=== PATIENT | male | born 1970 | race Caucasian/White ===

== ENCOUNTER 2016-09-06 16:51 | Inpatient (IN) | payer MEDICAID, OTHER ==
[~2016-09-06] VITALS: Ht 162.6 cm; Wt 66.2 kg
[~2016-09-06 16:51] MED LIST: IOHEXOL-350 100 ML BOTTLE ONE; SODIUM CHLORIDE 0.9% 10ML VIAL ONE
[2016-09-06] MEDS ORDERED: SODIUM CHLORIDE 0.9% 1,000 ML IV ONE (18:06)
[2016-09-06 18:35] LABS: BASOPHILS % 0.5 % (0.0-2.0); DIFFERENTIAL COMMENT 0; EOSINOPHILS % 5.3 % (0.0-5.0); HEMATOCRIT. 31.5 % (42.0-52.0); HEMOGLOBIN. 9.9 g/dL (14.0-18.0); LYMPHOCYTES % 9.3 % (20.0-50.0); MEAN CORPUSCULAR HEMOGLOBIN 23.2 pg (28.0-32.0); MEAN CORPUSCULAR HGB CONC 31.3 g/dL (31.0-37.0); MEAN CORPUSCULAR VOLUME 74.1 fL (80.0-94.0); MEAN PLATELET VOLUME 6.3 fl (7.4-10.4); MONOCYTES % 8.7 % (2.0-8.0); NEUTROPHILS % 76.2 % (40.0-76.0); PLATELET 634 x1000/uL (130-400); RED BLOOD CELL COUNT 4.26 mill/uL (4.7-6.1); RED CELL DISTRIBUTION WIDTH 18.4 % (11.6-14.6); WHITE BLOOD COUNT 4.9 x1000/uL (4.5-11.0)
[2016-09-06 18:43] LABS: INR 1.1
[2016-09-06 18:50] LABS: ALANINE AMINOTRANSFERASE 9 IU/L (13-61); ALBUMIN 3.1 g/dL (3.4-5.0); ANION GAP 16; CARBON DIOXIDE 25 mEq/L (21-32); CHLORIDE 97 mEq/L (98-107); INDEX HEMOLYSI 1 (1-3); INDEX ICTERIC 1 (1-4); INDEX LIPEMIC 1 (1-3); LIPASE 141 IU/L (73-393); UREA NITROGEN BLOOD 9 mg/dL (7-21); eGFR > 60 mL/min (>60)
[2016-09-06] MEDS ORDERED: DEXTROSE 50% WATER 50ML SYRINGE IV ONE (19:15)
[2016-09-06] MEDS ORDERED: ONDANSETRON HCL 4MG/2ML VIAL IV ONE (21:00)
[2016-09-06] MEDS ORDERED: MAGNESIUM/ALUMINUM HYDROXIDE/SIMETHICONE 30ML UDC PO PRN (21:00)
[2016-09-06] MEDS ORDERED: MORPHINE SULFATE 4 MG/ML CPJ (NOT FOR IM USE) IV ONE (21:00)
[2016-09-06] MEDS ORDERED: CLONIDINE 0.1MG TABLET PO PRN (21:00)
[2016-09-06] MEDS ORDERED: ACETAMINOPHEN 325MG TABLET PO PRN (21:00)
[2016-09-06] MEDS ORDERED: HYDROCODONE/ACETAMINOPHEN 5/325MG TABLET PO PRN (21:00)
[2016-09-06] MEDS ORDERED: IPRATROPIUM/ALBUTEROL 0.5-3(2.5)MG/3ML NEB INH PRN (21:00)
[2016-09-06 21:46] LABS: ANION GAP 17; CALCIUM 8.3 mg/dL (8.5-10.1); CARBON DIOXIDE 23 mEq/L (21-32); CHLORIDE 99 mEq/L (98-107); INDEX HEMOLYSI 1 (1-3); INDEX ICTERIC 1 (1-4); INDEX LIPEMIC 1 (1-3); UREA NITROGEN BLOOD 8 mg/dL (7-21); eGFR > 60 mL/min (>60)
[2016-09-06 22:15] LABS: CREATINE KINASE 20 IU/L (39-308); CREATINE KINASE MB FRACTION < 0.5 ng/mL (0.5-3.6); INDEX HEMOLYSI 1 (1-3); TROPONIN I < 0.02 ng/mL (0.00-0.04)
[2016-09-07] MEDS: SODIUM CHLORIDE 0.9% 1,000 ML IV SCH ×3 (01:52→21:32)
[2016-09-07] MEDS: ONDANSETRON HCL 4MG/2ML VIAL IV PRN ×3 (02:02→14:31)
[2016-09-07] MEDS: MORPHINE SULFATE 2 MG/ML CPJ (NOT FOR IM USE) IV PRN ×2 (02:02→08:18)
[2016-09-07 02:29] VITALS: BP 111/69
[2016-09-07 04:00] VITALS: BP 101/69
[2016-09-07 06:37] LABS: BASOPHILS % 0.6 % (0.0-2.0); DIFFERENTIAL COMMENT 0; EOSINOPHILS % 6.8 % (0.0-5.0); HEMATOCRIT. 30.2 % (42.0-52.0); HEMOGLOBIN. 9.7 g/dL (14.0-18.0); LYMPHOCYTES % 10.8 % (20.0-50.0); MEAN CORPUSCULAR HEMOGLOBIN 23.6 pg (28.0-32.0); MEAN CORPUSCULAR HGB CONC 32.1 g/dL (31.0-37.0); MEAN CORPUSCULAR VOLUME 73.5 fL (80.0-94.0); MEAN PLATELET VOLUME 6.6 fl (7.4-10.4); NEUTROPHILS % 71.8 % (40.0-76.0); PLATELET 617 x1000/uL (130-400); RED BLOOD CELL COUNT 4.12 mill/uL (4.7-6.1); RED CELL DISTRIBUTION WIDTH 17.8 % (11.6-14.6); WHITE BLOOD COUNT 4.9 x1000/uL (4.5-11.0)
[2016-09-07 06:45] LABS: CREATINE KINASE 19 IU/L (39-308); CREATINE KINASE MB FRACTION < 0.5 ng/mL (0.5-3.6); HDL CHOLESTEROL 23 mg/dL (40-59); INDEX HEMOLYSI 1 (1-3); INDEX ICTERIC 1 (1-4); INDEX LIPEMIC 1 (1-3); LDL CHOLESTEROL 130 mg/dL (5-100); TRIGLYCERIDE 156 mg/dL (0-150); TROPONIN I < 0.02 ng/mL (0.00-0.04)
[2016-09-07 08:00] VITALS: BP 113/68
[2016-09-07] MEDS ORDERED: MORPHINE SULFATE 2 MG/ML CPJ (NOT FOR IM USE) IV PRN (11:30)
[2016-09-07 12:00] VITALS: BP 112/71
[2016-09-07 12:57] LABS: CLARITY URINE TURBID (CLEAR); COLOR URINE YELLOW (YELLOW); GLUCOSE URINE NEGATIVE (NEGATIVE); KETONES URINE 4+ (NEGATIVE); LEUKOCYTE ESTERASE URINE 2+ (NEGATIVE); NITRITE URINE NEGATIVE (NEGATIVE); OCCULT BLOOD URINE 2+ (NEGATIVE); PH URINE 5.5 (4.5-8.0); PROTEIN URINE 1+ (NEGATIVE); SPECIFIC GRAVITY URINE 1.038 (1.005-1.030); UROBILINOGEN URINE 0.2 E.U./dL (0.2-1.0)
[2016-09-07 13:17] LABS: SQUAMOUS EPITHELIAL CELL URINE NONE SEEN /lpf (RARE/1+)
[2016-09-07 13:18] LABS: BACTERIA URINE 2+
[2016-09-07 13:19] LABS: RBC URINE 0-2 /hpf (0-2); WBC URINE 15-25 /hpf (0-2); YEAST URINE 3+
[2016-09-07 16:00] VITALS: BP 111/72
[2016-09-07] MEDS: METOCLOPRAMIDE HCL 10MG/2ML VIAL IV SCH ×2 (17:03→21:28)
[2016-09-07] MEDS: HYDROMORPHONE HCL/PF 2MG/ML CPJ IV PRN ×2 (17:04→21:31)
[2016-09-07] MEDS: CEFTRIAXONE 1 G PREMIX 50 ML IV SCH (17:05)
[2016-09-07 20:00] VITALS: BP 104/67
[2016-09-07] MEDS: ATORVASTATIN CALCIUM 10MG TABLET PO SCH (21:28)
[2016-09-07 21:29] LABS: THYROID STIMULATING HORMONE 1.4 uIU/mL (0.36-3.74)
[2016-09-07 22:48] LABS: FOLIC ACID (FOLATE) SERUM 9.8 ng/mL (>5.38)
[2016-09-08] VITALS: BP 108/74
[2016-09-08 04:00] VITALS: BP 111/76
[2016-09-08] MEDS: HYDROMORPHONE HCL/PF 2MG/ML CPJ IV PRN ×4 (04:07→20:22)
[2016-09-08] MEDS: ONDANSETRON HCL 4MG/2ML VIAL IV PRN (04:13)
[2016-09-08 06:35] LABS: HEMATOCRIT. 27.7 % (42.0-52.0); HEMOGLOBIN. 9.1 g/dL (14.0-18.0); MEAN CORPUSCULAR HEMOGLOBIN 24.1 pg (28.0-32.0); MEAN CORPUSCULAR VOLUME 73.1 fL (80.0-94.0); MEAN PLATELET VOLUME 6.7 fl (7.4-10.4); PLATELET 538 x1000/uL (130-400); RED BLOOD CELL COUNT 3.79 mill/uL (4.7-6.1)
[2016-09-08] MEDS: METOCLOPRAMIDE HCL 10MG/2ML VIAL IV SCH ×4 (06:36→21:28)
[2016-09-08 06:37] LABS: DIFFERENTIAL COMMENT 1
[2016-09-08 07:23] LABS: CHLORIDE 101 mEq/L (98-107); INDEX HEMOLYSI 1 (1-3); INDEX ICTERIC 1 (1-4); INDEX LIPEMIC 1 (1-3)
[2016-09-08 07:32] LABS: ANION GAP 13; CARBON DIOXIDE 26 mEq/L (21-32); eGFR > 60 mL/min (>60)
[2016-09-08 08:00] VITALS: BP 108/76
[2016-09-08 08:04] LABS: UREA NITROGEN BLOOD 4 mg/dL (7-21)
[2016-09-08 08:36] LABS: ANISOCYTOSIS 1+; PLATELET ESTIMATE INCREASED
[2016-09-08] MEDS: SODIUM CHLORIDE 0.9% 1,000 ML IV SCH ×2 (08:52→17:24)
[2016-09-08] MEDS ORDERED: POTASSIUM CHLORIDE 20MEQ TABLET SR PO NR (10:47)
[2016-09-08 12:00] VITALS: BP 104/75
[2016-09-08] MEDS: CEFTRIAXONE 1 G PREMIX 50 ML IV SCH (15:55)
[2016-09-08 16:00] VITALS: BP 118/84
[2016-09-08 20:00] VITALS: BP 122/90
[2016-09-08] MEDS: ATORVASTATIN CALCIUM 10MG TABLET PO SCH (21:28)
[2016-09-08] MEDS: FLUCONAZOLE 400MG/200ML BAG 200 ML IV SCH (22:19)
[2016-09-09] VITALS: BP 111/75
[2016-09-09] MEDS: SODIUM CHLORIDE 0.9% 1,000 ML IV SCH ×3 (03:04→21:59)
[2016-09-09 04:00] VITALS: BP_SYST 103; BP_SYST 134; BP_DIAS 74; BP_DIAS 94
[2016-09-09] MEDS: HYDROMORPHONE HCL/PF 2MG/ML CPJ IV PRN ×6 (05:28→21:57)
[2016-09-09] MEDS: METOCLOPRAMIDE HCL 10MG/2ML VIAL IV SCH ×4 (06:20→21:13)
[2016-09-09 06:58] LABS: BASOPHILS % 0.4 % (0.0-2.0); DIFFERENTIAL COMMENT 0; EOSINOPHILS % 4.2 % (0.0-5.0); HEMATOCRIT. 32.4 % (42.0-52.0); HEMOGLOBIN. 10.4 g/dL (14.0-18.0); LYMPHOCYTES % 9.3 % (20.0-50.0); MEAN CORPUSCULAR HEMOGLOBIN 23.5 pg (28.0-32.0); MEAN CORPUSCULAR HGB CONC 32.1 g/dL (31.0-37.0); MEAN CORPUSCULAR VOLUME 73.2 fL (80.0-94.0); MONOCYTES % 10.8 % (2.0-8.0); NEUTROPHILS % 75.3 % (40.0-76.0); PLATELET 595 x1000/uL (130-400); RED BLOOD CELL COUNT 4.43 mill/uL (4.7-6.1); RED CELL DISTRIBUTION WIDTH 17.8 % (11.6-14.6); WHITE BLOOD COUNT 7.7 x1000/uL (4.5-11.0)
[2016-09-09 07:25] LABS: ANION GAP 13; CALCIUM 8.7 mg/dL (8.5-10.1); CARBON DIOXIDE 29 mEq/L (21-32); CHLORIDE 102 mEq/L (98-107); INDEX HEMOLYSI 1 (1-3); INDEX ICTERIC 1 (1-4); INDEX LIPEMIC 1 (1-3); eGFR > 60 mL/min (>60)
[2016-09-09 07:41] LABS: UREA NITROGEN BLOOD 2 mg/dL (7-21)
[2016-09-09 08:00] VITALS: BP 106/74
[2016-09-09 12:00] VITALS: BP 107/85
[2016-09-09 16:00] VITALS: BP 118/81
[2016-09-09 20:00] VITALS: BP 114/83
[2016-09-09] MEDS: ATORVASTATIN CALCIUM 10MG TABLET PO SCH (21:13)
[2016-09-09] MEDS: FLUCONAZOLE 400MG/200ML BAG 200 ML IV SCH (21:13)
[2016-09-10] VITALS (7 sets, daily range): BP systolic 100–126; BP diastolic 61–93
[2016-09-10] MEDS: HYDROMORPHONE HCL/PF 2MG/ML CPJ IV PRN ×5 (04:13→22:06)
[2016-09-10 05:44] LABS: HEMATOCRIT. 29.6 % (42.0-52.0); HEMOGLOBIN. 9.3 g/dL (14.0-18.0); MEAN CORPUSCULAR HGB CONC 31.3 g/dL (31.0-37.0); MEAN CORPUSCULAR VOLUME 73.3 fL (80.0-94.0); MEAN PLATELET VOLUME 6.6 fl (7.4-10.4); PLATELET 477 x1000/uL (130-400); RED BLOOD CELL COUNT 4.04 mill/uL (4.7-6.1); RED CELL DISTRIBUTION WIDTH 17.9 % (11.6-14.6); WHITE BLOOD COUNT 6.5 x1000/uL (4.5-11.0)
[2016-09-10] MEDS: METOCLOPRAMIDE HCL 10MG/2ML VIAL IV SCH ×4 (06:07→22:06)
[2016-09-10 06:14] LABS: DIFFERENTIAL COMMENT 1
[2016-09-10 06:37] LABS: ANION GAP 14; CARBON DIOXIDE 28 mEq/L (21-32); CHLORIDE 103 mEq/L (98-107); INDEX HEMOLYSI 1 (1-3); INDEX ICTERIC 1 (1-4); INDEX LIPEMIC 1 (1-3); eGFR > 60 mL/min (>60)
[2016-09-10 06:43] LABS: UREA NITROGEN BLOOD 3 mg/dL (7-21)
[2016-09-10] MEDS: SODIUM CHLORIDE 0.9% 1,000 ML IV SCH ×2 (08:24→17:59)
[2016-09-10] MEDS ORDERED: CEFAZOLIN 1000MG PREMIX 50 ML IV SCH (09:40)
[2016-09-10 11:08] LABS: ANISOCYTOSIS 1+; HYPOCHROMASIA 1+
[2016-09-10 11:09] LABS: PLATELET ESTIMATE INCREASED
[2016-09-10] MEDS ORDERED: IOHEXOL-300 50 ML BOTTLE IV ONE (14:35)
[2016-09-10] MEDS ORDERED: IOHEXOL-300 100 ML BOTTLE ONE (14:35)
[2016-09-10] MEDS ORDERED: SODIUM CHLORIDE 0.9% 10ML VIAL ONE (14:35)
[2016-09-10 15:21] LABS: HEMATOCRIT. 29.1 % (42.0-52.0); HEMOGLOBIN. 9.3 g/dL (14.0-18.0); MEAN CORPUSCULAR HEMOGLOBIN 23.6 pg (28.0-32.0); MEAN CORPUSCULAR VOLUME 73.7 fL (80.0-94.0); MEAN PLATELET VOLUME 6.7 fl (7.4-10.4); PLATELET 424 x1000/uL (130-400); RED BLOOD CELL COUNT 3.95 mill/uL (4.7-6.1); RED CELL DISTRIBUTION WIDTH 18.1 % (11.6-14.6); WHITE BLOOD COUNT 7.1 x1000/uL (4.5-11.0)
[2016-09-10 15:25] LABS: DIFFERENTIAL COMMENT 1
[2016-09-10 15:41] LABS: ALANINE AMINOTRANSFERASE < 6 IU/L (13-61); ALBUMIN 2.5 g/dL (3.4-5.0); ANION GAP 12; CALCIUM 8.3 mg/dL (8.5-10.1); CARBON DIOXIDE 26 mEq/L (21-32); CHLORIDE 102 mEq/L (98-107); INDEX HEMOLYSI 1 (1-3); INDEX ICTERIC 1 (1-4); INDEX LIPEMIC 1 (1-3); MAGNESIUM 1.8 mg/dL (1.8-2.4); PHOSPHORUS 2.9 mg/dL (2.5-4.9); TRIGLYCERIDE 130 mg/dL (0-150); eGFR > 60 mL/min (>60)
[2016-09-10 15:45] LABS: HYPOCHROMASIA 1+; PLATELET ESTIMATE INCREASED
[2016-09-10 15:46] LABS: ANISOCYTOSIS 1+
[2016-09-10 15:49] LABS: UREA NITROGEN BLOOD 3 mg/dL (7-21)
[2016-09-10] MEDS ORDERED: KCL 10MEQ/50ML PREMIX 50 ML IV NR (17:00)
[2016-09-10] MEDS: BLOOD SUGAR DIAGNOSTIC STRIP TEST SCH (18:00)
[2016-09-10] MEDS: ATORVASTATIN CALCIUM 10MG TABLET PO SCH ×2 (21:00→22:06)
[2016-09-10] MEDS ORDERED: FAT EMULSIONS 500 ML IV SCH (21:00)
[2016-09-10] MEDS: FLUCONAZOLE 400MG/200ML BAG 200 ML IV SCH (22:07)
[2016-09-10] MEDS: TOTAL PARENTERAL NUTRITION 1,000 ML IV SCH (22:11)
[2016-09-11 01:21] VITALS: BP 96/69
[2016-09-11] MEDS: HYDROMORPHONE HCL/PF 2MG/ML CPJ IV PRN ×6 (02:06→16:54)
[2016-09-11 04:44] VITALS: BP 113/84
[2016-09-11] MEDS: BLOOD SUGAR DIAGNOSTIC STRIP TEST SCH ×3 (05:30→12:45)
[2016-09-11] MEDS: METOCLOPRAMIDE HCL 10MG/2ML VIAL IV SCH ×3 (06:41→16:54)
[2016-09-11] MEDS: TOTAL PARENTERAL NUTRITION 1,000 ML IV SCH ×2 (07:00→17:07)
[2016-09-11 08:09] VITALS: BP 111/84
[2016-09-11 12:00] VITALS: BP 117/87
[2016-09-11 19:29] VITALS: BP 111/80
[2016-09-11 19:45] VITALS: BP 111/80
[2016-09-12 13:07] LABS: HGB SOLUBILITY Negative (Negative)
== END 2016-09-11 20:35 | disposition home health service (06) | DRG 240 ==
LOC: ER 17:57 → 6WST 21:00
PROVIDERS: ADMIT Internal Medicine; ATTEND Internal Medicine
PROC: 06H03DZ Insertion of Intraluminal Device into Inferior Vena Cava, Percutaneous Approach (ICD-10-PCS; principal; 2016-09-10)
PROC: 02HV33Z Insertion of Infusion Device into Superior Vena Cava, Percutaneous Approach (ICD-10-PCS; 2016-09-10)
PROC: B5181ZA Fluoroscopy of Superior Vena Cava using Low Osmolar Contrast, Guidance (ICD-10-PCS; 2016-09-10)
PROC: B548ZZA Ultrasonography of Superior Vena Cava, Guidance (ICD-10-PCS; 2016-09-10)
DX: C18.9 Malignant neoplasm of colon, unspecified (principal); I26.99 Other pulmonary embolism without acute cor pulmonale; K74.60 Unspecified cirrhosis of liver; K56.7 Ileus, unspecified; R18.8 Other ascites; N30.90 Cystitis, unspecified without hematuria; B37.49 Other urogenital candidiasis; D50.9 Iron deficiency anemia, unspecified; G89.29 Other chronic pain; D75.89 Other specified diseases of blood and blood-forming organs; K92.1 Melena; R91.1 Solitary pulmonary nodule; Z93.3 Colostomy status; Z93.6 Other artificial openings of urinary tract status; Z85.048 Personal history of other malignant neoplasm of rectum, rectosigmoid junction, and anus
CPT/HCPCS: 36415; 36569; 37191; 71275; 74177; 76705; 76937; 77001; 80048; 80053; 80061; 81001; 82270; 82550; 82553; 82607; 82728; 82746; 82962; 83010; 83021; 83540; 83550; 83605; 83615; 83690; 83735; 84100; 84443; 84478; 84484; 85025; 85044; 85610; 85651; 85660; 87040; 87045; 87086; 87186; 87449; 87493; 93306; 93970; 93971; 96361; 96374; 96375; 99285; A4216; C1725; C1769; C1880; J0690; J0696; J1170; J1450; J2270; J2405; J2765; J3480; J7030; J7050; J7620; Q9967

== ENCOUNTER 2016-09-22 01:17 | Emergency (ER) | payer OTHER ==
[~2016-09-22] VITALS: Ht 162.6 cm; Wt 55.0 kg
[2016-09-22] MEDS ORDERED: SODIUM CHLORIDE 0.9% 1,000 ML IV ONE (02:20)
[2016-09-22] MEDS ORDERED: ONDANSETRON HCL 4MG/2ML VIAL IV STA (02:20)
[2016-09-22] MEDS ORDERED: DIPHENHYDRAMINE 50MG/ML VIAL IV ONE (02:30)
[2016-09-22] MEDS ORDERED: HYDROMORPHONE HCL/PF 2MG/ML CPJ IV ONE ×2 (02:30→06:00)
[2016-09-22 03:43] LABS: CLARITY URINE CLOUDY (CLEAR); COLOR URINE DARK YELLOW (YELLOW); GLUCOSE URINE 3+ (NEGATIVE); KETONES URINE NEGATIVE (NEGATIVE); LEUKOCYTE ESTERASE URINE 1+ (NEGATIVE); NITRITE URINE NEGATIVE (NEGATIVE); OCCULT BLOOD URINE 1+ (NEGATIVE); PROTEIN URINE 1+ (NEGATIVE); UROBILINOGEN URINE 0.2 E.U./dL (0.2-1.0)
[2016-09-22 05:05] LABS: HEMATOCRIT. 27.4 % (42.0-52.0); HEMOGLOBIN. 9.2 g/dL (14.0-18.0); MEAN CORPUSCULAR HEMOGLOBIN 25.3 pg (28.0-32.0); MEAN CORPUSCULAR VOLUME 75.6 fL (80.0-94.0); PLATELET 269 x1000/uL (130-400); RED BLOOD CELL COUNT 3.62 mill/uL (4.7-6.1)
[2016-09-22 05:11] LABS: INR 1.4; PROTHROMBIN TIME 14.3 sec
[2016-09-22 05:19] LABS: CARBON DIOXIDE 27 mEq/L (21-32); CHLORIDE 100 mEq/L (98-107)
[2016-09-22 05:53] VITALS: BP 118/79
[2016-09-22] MEDS ORDERED: ONDANSETRON HCL 4MG/2ML VIAL IV ONE (06:15)
[2016-09-22 06:55] LABS: PLATELET ESTIMATE NORMAL
== END 2016-09-22 06:43 | disposition home or self-care (01) ==
LOC: ER 01:17
DX: R18.8 Other ascites (principal); R11.2 Nausea with vomiting, unspecified; Z85.028 Personal history of other malignant neoplasm of stomach; Z86.718 Personal history of other venous thrombosis and embolism; Z85.038 Personal history of other malignant neoplasm of large intestine; Z93.6 Other artificial openings of urinary tract status
CPT/HCPCS: 36415; 74176; 80053; 81001; 83605; 85025; 85610; 96361; 96374; 96375; 99285; J1170; J1200; J2405; J7030; Z7610